=== PATIENT | female | born 1955 | race Caucasian/White ===

== ENCOUNTER → 2017-03-30 | Outpatient (CLI) | payer OTHER | LOC: FIMAGING 16:02 | PROVIDERS: ATTEND Physician Assistant | DX: M16.12 Unilateral primary osteoarthritis, left hip (principal); M67.952 Unspecified disorder of synovium and tendon, left thigh; D25.9 Leiomyoma of uterus, unspecified ==

== ENCOUNTER → 2017-09-08 | Outpatient (CLI) | payer OTHER | LOC: FIMAGING 11:53 | PROVIDERS: ATTEND Orthopaedic Surgery | DX: M16.0 Bilateral primary osteoarthritis of hip (principal) ==

== ENCOUNTER 2017-09-22 09:15 | Inpatient (IN) | payer OTHER ==
[~2017-09-22 09:15] MED LIST: ROPIVACAINE 0.2% 80 MG, EPINEPHrine 0.2 MG, KETOROLAC TROMETHAMINE 30 MG in BAG 0 ML IU ONE; TRANEXAMIC ACID 3,000 MG in NS 50 ML IRR ONE
[2017-09-22] MEDS ORDERED: TRANEXAMIC ACID 3,000 MG/50 ML BAG IRR ONE (10:39)
[2017-09-22] MEDS ORDERED: DEXAMETHASONE 4 MG/ML VIAL IVP ONE (12:31)
[2017-09-22] MEDS ORDERED: FAMOTIDINE 20 MG TAB PO ONE (12:31)
[2017-09-22] MEDS ORDERED: ACETAMINOPHEN 325 MG TAB PO ONE (12:31)
[2017-09-22] MEDS ORDERED: ceFAZolin 2 GM/SWFI 2 GM/20 ML SYR IVP ONE (12:31)
[2017-09-22] MEDS ORDERED: LIDOCAINE 1% 2 ML INJ ID PRN (12:44)
[2017-09-22] MEDS ORDERED: LR 1,000 ML IV ONE (12:44)
[2017-09-22] MEDS ORDERED: LIDOCAINE 1% 2 ML INJ ONE (12:50)
[2017-09-22] MEDS ORDERED: ACETAMINOPHEN 325 MG TAB ONE (13:13)
--- NOTE | 2017-09-22 14:03 | PDHPUP ---
History & Physical Update H&P update statement: This history and physical update is based on an assessment of the patient which was completed after admission or registration (within 24 hours), but prior to the surgery/procedure. H&P update: H&P reviewed & patient examined, no change in patient's condition since H&P completed
[2017-09-22] MEDS ORDERED: MIDAZOLAM 2 MG/2 ML VIAL IVP ONE (14:28)
--- NOTE | 2017-09-22 14:30 | PDANEPAE ---
ANE History of Present Illness left hip osteoarthritis ANE Past Medical History - Cardiovascular History Hx Hypertension: No Hx Arrhythmias: No Hx Chest Pain: No Hx Coronary Artery / Peripheral Vascular Disease: No Hx CHF / Valvular Disease: No Hx Palpitations: No - Pulmonary History Hx COPD: No Hx Asthma/Reactive Airway Disease: No Hx Recent Upper Respiratory Infection: No Hx Oxygen in Use at Home: No Hx Sleep Apnea: No Sleep Apnea Screening Result - Last Documented: Negative - Neurologic History Hx Cerebrovascular Accident: No Hx Seizures: No Hx Dementia: No - Endocrine History Hx Diabetes: No - Renal History Hx Renal Disorders: No - Liver History Hx Hepatic Disorders: No - Neurological & Psychiatric Hx Hx Neurological and Psychiatric Disorders: No - Cancer History Hx Cancer: Yes Cancer History Comment: basal cell skin cancer - Congenital Disorder History Hx Congenital Disorders: No - GI History Hx Gastrointestinal Disorders: No - Other Health History Other Health History: none - Chronic Pain History Chronic Pain: Yes (right hip) - Surgical History Prior Surgeries: arthroscopic right knee ANE Review of Systems Review of Systems: - Exercise capacity METS (RN): 4 METS ANE Patient History - Allergies Allergies/Adverse Reactions: No Known Allergies Allergy (Unverified 02/16/15 10:27) - Home Medications Home Medications: Herbals/Supplements -Info Only 1 ea PO DAILY 09/02/17 [Last Taken 2 Weeks Ago ~ 09/08/17] Naproxen Sodium [Aleve 220 MG (*)] 220 mg PO DAILY PRN 09/02/17 [Last Taken 10 Days Ago ~09/12/17] Vitamin B Complex [B Complex] 1 each PO DAILY 09/02/17 [Last Taken 2 Weeks Ago ~ 09/08/17] - NPO status NPO Since - Liquids (Date): 09/22/17 NPO Since - Liquids (Time): 10:30 NPO Since - Solids (Date): 09/21/17 NPO Since - Solids (Time): 22:00 - Smoking Hx Smoking Status: Never smoked - Family Anes Hx Family Hx Anesthesia Complications: none ANE Labs/Vital Signs - Vital Signs Height: 162.56 cm Weight: 54.431 kg ANE Physical Exam - Airway Neck exam: FROM Mallampati Score: Class 1 Mouth exam: normal dental/mouth exam - Pulmonary Pulmonary: no respiratory distress - Cardiovascular Cardiovascular: regular rate and rhythym - ASA Status ASA Status: I ANE Anesthesia Plan Anesthesia Plan: MAC, spinal
[2017-09-22] MEDS ORDERED: PROPOFOL/EMULSION 500 MG/50 ML BOTTLE IV ONE (14:33)
[2017-09-22] MEDS ORDERED: MIDAZOLAM 2 MG/2 ML VIAL ONE (14:39)
[2017-09-22] MEDS ORDERED: fentaNYL 100 MCG/2 ML INJ ONE ×3 (14:53→17:11)
[2017-09-22] MEDS ORDERED: DIPHENOXYLATE/ATROPINE LOMOTIL 1 TAB PO PRN (15:09)
[2017-09-22] MEDS ORDERED: diphenhydrAMINE 25 MG CAP PO PRN (15:09)
[2017-09-22] MEDS ORDERED: POLYETHYLENE GLYCOL 3350 17 GM PKT PO PRN (15:09)
[2017-09-22] MEDS ORDERED: CYCLOBENZAPRINE 10 MG TAB PO PRN (15:09)
[2017-09-22] MEDS ORDERED: PROMETHAZINE HCL 25 MG SUPPR PR PRN (15:09)
[2017-09-22] MEDS ORDERED: METOCLOPRAMIDE 10 MG/2 ML VIAL IVP PRN (15:09)
[2017-09-22] MEDS ORDERED: ONDANSETRON DISINTEGRATING 4 MG TAB PO PRN (15:09)
[2017-09-22] MEDS ORDERED: LACTULOSE 20 GM/30 ML UDCUP PO PRN (15:09)
[2017-09-22] MEDS ORDERED: ONDANSETRON 4 MG/2 ML VIAL IVP PRN ×2 (15:09→16:00)
[2017-09-22] MEDS ORDERED: TEMAZEPAM 15 MG CAP PO PRN (15:09)
[2017-09-22] MEDS ORDERED: PROMETHAZINE HCL 25 MG/ML INJ IVP PRN ×2 (15:09→16:00)
[2017-09-22] MEDS ORDERED: MAGNESIUM HYDROXIDE 30 ML UDCUP PO PRN (15:09)
[2017-09-22] MEDS ORDERED: BISACODYL 10 MG SUPP PR PRN (15:09)
[2017-09-22] MEDS ORDERED: LR 1,000 ML IV SCH (15:30)
[2017-09-22] MEDS ORDERED: HYDROmorphONE/DILAUDID 2 MG/ML INJ ONE (15:42)
[2017-09-22] MEDS ORDERED: HYDROCODONE/APAP 5/325 TAB PO PRN (16:00)
[2017-09-22] MEDS ORDERED: NALOXONE HCL 0.4 MG/ML INJ IVP PRN (16:00)
[2017-09-22] MEDS ORDERED: HYDROmorphONE/DILAUDID 1 MG/ML INJ ONE (16:34)
--- NOTE | 2017-09-22 16:34 | POSTANESTH ---
Post Anesthetic Evaluation Cardiovascular Status: Normal, Stable Respiratory Status: Normal, Stable Level of Consciousness/Mental Status: Can Participate in Eval Pain Control: Adequate, Prn Tx Ordered Nausea/Vomiting Control: Adequate, Prn Tx Ordered Complications Possibly Related to Anesthesia: None Noted
--- NOTE | 2017-09-22 16:34 | POSTOPPROG ---
Post Op Note Date of Operation: 09/22/17 Surgeon: Mamie Srivastava Cellophane Casting Machine Repairer: Yasmin Srivastava PAc Anesthesiologist: Sepideh Anesthesia: Spinal Pre-op Diagnosis: L hip DJD Post-op Diagnosis: same Indication: pain Procedure: L HELENA with robotic assist Findings: DJD hip Inf/Abcess present in the surg proc area at time of surgery?: No EBL: 100-500
[2017-09-22] MEDS: HYDROmorphONE/DILAUDID 1 MG/ML INJ IVP PRN ×3 (16:35→17:04)
[2017-09-22] MEDS: fentaNYL 100 MCG/2 ML INJ IVP PRN ×3 (16:39→17:14)
[2017-09-22] MEDS ORDERED: HYDROCODONE/APAP 5/325 TAB ONE (17:12)
[2017-09-22] MEDS: oxyCODONE IR 5 MG TAB PO PRN ×2 (18:12→23:50)
[2017-09-22] MEDS: ACETAMINOPHEN 325 MG TAB PO SCH ×2 (18:12→23:51)
[2017-09-22] MEDS: FAMOTIDINE 20 MG TAB PO SCH (19:51)
[2017-09-22] MEDS: ASPIRIN 325 MG TAB PO SCH (19:51)
[2017-09-22] MEDS: SENNOSIDES/DOCUSATE SODIUM TAB PO SCH (19:51)
[2017-09-22] MEDS: ceFAZolin 2 GM/DEXTROSE 100 ML IV SCH (23:52)
[2017-09-23 03:38] VITALS: TEMP 98.4
[2017-09-23] MEDS: oxyCODONE IR 5 MG TAB PO PRN ×2 (03:43→11:59)
--- NOTE | 2017-09-23 05:12 | GOP ---
[f rep st] OPERATIVE REPORT DATE OF OPERATION: 09/22/2017 SURGEON: Nathaniel Srivastava MD IRON WORKER FOREMAN: MORAIMA Pderaza ANESTHESIA: Spinal. PREOPERATIVE DIAGNOSIS: Left hip osteoarthritis. POSTOPERATIVE DIAGNOSIS: Left hip osteoarthritis. PROCEDURE PERFORMED: Left total hip arthroplasty with computer navigation. FINDINGS: ESTIMATED BLOOD LOSS: 200 cc. INDICATIONS: The patient has progressively worsening arthritis of the hip which has failed medical m anagement. The patient understands the treatment option including continued non-operative care and h as selected surgical intervention. The patient has decided to undergo total hip arthroplasty via the direct anterior approach understanding the risks of the procedure including, but not limited to, vannesa rovascular injury, infection, persistent pain, component wear and loosening, deep venous thrombosis, pulmonary embolism, limb length inequality (including dislocation), and intraoperative fractures. DESCRIPTION OF PROCEDURE: After proper identification of the patient including verification and villa ing the surgical site, the patient was brought to the operating room and placed in the supine positio n. All bony prominences were well padded. Anesthesia was induced without complication and intraveno us prophylactic antibiotics were administered prior to skin incision. After prepping and draping in the usual sterile fashion, attention was drawn to the contralateral pel vis for attachment of the computer navigation tracker. Three percutaneous incisions were made over t he iliac crest and the pelvic tracker was affixed using threaded 3.5 mm pins yielding excellent fixat ion. Using computer navigation the patient's leg length and topographical pelvic anatomy was registe red without complication. Attention was then drawn to surgical exposure of the hip. An incision was made with a #10 Bard Onur r blade starting 3 cm lateral and 3 cm distal to the anterior superior iliac spine measuring 8 cm to 10 cm and coursing distally toward the greater trochanter. The skin and subcutaneous tissues were di vided sharply down the fascia sanchez. The fascia sanchez was incised in line with the skin incision expos ing the underlying tensor fascia sanchez muscle. This muscle was bluntly elevated from the fascia and t he first extracapsular Cobra retractor was placed laterally at the junction of the superior femoral n karlos and greater trochanter. The lateral femoral circumflex vessels were identified, cauterized and d ivided with the Aquamantys bipolar cautery. The deep investing fascia of the TFL was divided to allo w proper mobilization of the muscle preventing damage during retraction. The reflected head of the r ectus femoris muscle was elevated off the anterior hip capsule and a medial Cobra retractor was place d just proximal to the lesser trochanter. The anterior capsulotomy was made sharply from the superolateral acetabulum to the saddle junction of the superior femoral neck and greater trochanter, then coursing inferomedial towards the lesser troc hanter. The retractors were then placed in the intracapsular position for femoral neck osteotomy. C orresponding to preoperative templating the osteotomy was made with the oscillating saw protecting th e greater trochanter and soft tissues. The femoral head was removed from the acetabulum with a corks crew and confirmed to be severely arthritic with exposed bone, deformity and osteophytes. Similar fi nding were confirmed in the acetabulum. The Arch table extension was then placed in 40 degrees external rotation. Attention was then drawn t o the acetabular preparation. After placement of the anterior and posterior Cobra retractors outside the labrum and intrascapular the circumferential labrum was removed sharply. The foveal contents we re then removed and hemostasis obtained with cautery. The anatomy of the acetabulum was then registe red using computer navigation. The first reamer selected was sized using the removed femoral head. Reaming began with robotic marixa t at 40 degrees of abduction and 20 degrees of anteversion using computer navigation. Reaming ceased 0 mm less than the definitive acetabular component. The final acetabular component was inserted usi ng the computer to achieve proper orientation yielding excellent purchase and stability in the acetab ulum. The final acetabular liner was then placed and its seating confirmed. Attention was then turned to the femur. The Arch table extension was placed in extension and adducti on delivering the osteotomized femoral neck into the wound. A 2-pronged femoral elevator was placed at the calcar and another at the tip of the greater trochanter. The posterolateral capsule was relea sed with cautery allowing mobilization of the femur lateral and anterior for preparation. The shot blast equipment operator al rotators were visualized and preserved. A curette and rongeur were used to open the starting poin t for broaching. Serial broaching started with the #0 broach and ended with the broach that exhibited excellent fit in the proximal femur. A change in pitch during mallet strikes was accompanied by the inability to advance the broach any further. The trial reduction was performed and fluoroscopic skip igation was utilized to check limb length. Adjustments were made to equalize limb length accordingly . After the final trials were accepted they were removed and the wound was copiously lavaged. The femo ral component was seated to the same depth as the final broach and the femoral head was impacted onto the clean trunnion. The hip was then reduced for the final time and once more fluoroscopic navigati on used to check that limb length equality was achieved. The wound was irrigated and closed in layers, the fascia sanchez with 2-0 Quill, the subcutaneous tissue with a 2-0 Quill, and the skin with Dermabond, including the small incisions for computer navigation . Sterile dressings were applied. Final sharps and sponge counts were accurate. The patient was th en transferred to a hospital bed and brought to the recovery room in stable condition. IMPLANTS: Accolate II size 4 at 127. Acetabular component a 54 mm Tritanium. The liner is a Triden t X3 36 mm. The head is a Biolox Delta 36 mm -2.5. /[id number]/MODL
[2017-09-23] MEDS: ACETAMINOPHEN 325 MG TAB PO SCH ×2 (06:21→11:58)
[2017-09-23] MEDS: ceFAZolin 2 GM/DEXTROSE 100 ML IV SCH (06:21)
[2017-09-23 07:21] VITALS: BP 110/62; PULSE 61; RESP 16; O2SAT 97
[2017-09-23] MEDS: SENNOSIDES/DOCUSATE SODIUM TAB PO SCH (08:57)
[2017-09-23] MEDS: ASPIRIN 325 MG TAB PO SCH (08:57)
[2017-09-23] MEDS: FAMOTIDINE 20 MG TAB PO SCH (08:57)
--- NOTE | 2017-09-23 10:03 | SOAPPROG ---
SOAP Progress Note Assessment/Plan: Assessment: Patient is doing well POD 1 s/p L HELENA Pain management: pain is well controlled on oral pain meds. VTE ppx: recommend aspirin daily for 3 weeks, cont NANY and SCDs Anemia: level is expected initially postop. Asymptomatic. Continue to monitor D/c planning: d/c to home today pending release from PT Plan: 09/23/17 10:02 Subjective: Micheline is doing well today, denies SOB, chest pain and N/v Objective: Vital Signs Temp Pulse Resp BP Pulse Ox 36.9 C 61 16 110/62 97 09/23/17 07:20 09/23/17 07:20 09/23/17 07:20 09/23/17 07:20 09/23/17 07:20 Laboratory Results 09/23/17 04:56 09/22/17 09/23/17 09/24/17 05:59 05:59 05:59 Intake Total 1000 Output Total 750 Balance 250 LLE; incision dressing is clean and dry, NVI, +pf/df ICD10 Worksheet Patient Problems: Problems Problem Status Onset Primary localized osteoarthritis of left hip Acute
--- NOTE | 2017-09-23 14:15 | ASDISCHSUM ---
Discharge Information Plan Status:Home with No Needs Medically Cleared to Leave: Discharge Date:09/23/2017 12:25 PM CM D/C Disposition:Home, Routine, Self-Care ADT D/C Disposition:Home, Routine, Self-Care Projected Discharge Date:09/23/2017 12:25 PM Transportation at D/C: Discharge Delay Reason: Follow-Up Date:09/23/2017 12:25 PM Discharge Slot: Final Diagnosis: Placement Information Patient Contact Information Contact Name:CRISTA Relationship: Address:[address] Work Phone: City:[facility] Phone: [facility]/Zip Code:[place] [address] Email: Financial Information Financial Class:Commercial Primary Plan Desc:[employer] Primary Plan Number:[id number] Secondary Plan Desc: Secondary Plan Number: Assessment Information Intervention Information
--- NOTE | 2017-09-23 14:15 | ASDISCHSUM ---
Discharge Information Plan Status:Home with No Needs Medically Cleared to Leave: Discharge Date:09/23/2017 12:25 PM CM D/C Disposition:Home, Routine, Self-Care ADT D/C Disposition:Home, Routine, Self-Care Projected Discharge Date:09/23/2017 12:25 PM Transportation at D/C: Discharge Delay Reason: Follow-Up Date:09/23/2017 12:25 PM Discharge Slot: Final Diagnosis: Placement Information Patient Contact Information Contact Name:CRISTA Relationship: Address:[address] Work Phone: City:[facility] Phone: [facility]/Zip Code:[place] [address] Email: Financial Information Financial Class:Commercial Primary Plan Desc:[employer] Primary Plan Number:[id number] Secondary Plan Desc: Secondary Plan Number: Assessment Information Intervention Information
--- NOTE | 2017-09-23 14:15 | ASDISCHSUM ---
Discharge Information Plan Status:Home with No Needs Medically Cleared to Leave: Discharge Date:09/23/2017 12:25 PM CM D/C Disposition:Home, Routine, Self-Care ADT D/C Disposition:Home, Routine, Self-Care Projected Discharge Date:09/23/2017 12:25 PM Transportation at D/C: Discharge Delay Reason: Follow-Up Date:09/23/2017 12:25 PM Discharge Slot: Final Diagnosis: Placement Information Patient Contact Information Contact Name:CRISTA Relationship: Address:[address] Work Phone: City:[facility] Phone: [facility]/Zip Code:[place] [address] Email: Financial Information Financial Class:Commercial Primary Plan Desc:[employer]FREDD[employer] Primary Plan Number:[id number] Secondary Plan Desc: Secondary Plan Number: Assessment Information Intervention Information
== END 2017-09-23 12:25 | disposition home or self-care (01) | DRG 470 ==
LOC: F3N 12:00
PROVIDERS: ADMIT Orthopaedic Surgery; ATTEND Orthopaedic Surgery
DX: M16.12 Unilateral primary osteoarthritis, left hip (principal); Z85.820 Personal history of malignant melanoma of skin
CPT/HCPCS: 97161-GP; 97165-GO; 97535-GO; J0171; J0690; J1100; J1170; J1885; J2250; J2704; J2795; J3010